=== PATIENT | female | born 1990 | race Caucasian/White ===

== ENCOUNTER 2019-12-26 10:19 | Inpatient (IN) | payer SELFPAY ==
[2019-12-26 10:20] VITALS: BP 110/78; PULSE 80; RESP 18; TEMP 36.6; O2SAT 98; BMI 25.6
--- NOTE | 2019-12-26 10:24 | W.ED.PSYCH ---
Documented by User: VERONIKA Lawson 12/26/19 15:58 HPI - Psych General: Chief Complaint: Psychiatric Symptoms Stated Complaint: SI Time Seen by Provider: 12/26/19 10:24 Source: patient Mode of arrival: ambulatory Limitations: no limitations History of Present Illness: HPI Narrative: Patient is a 29-year-old female who presents to ED today with a complaint of suicidal ideations over the past 2 to 3 weeks. She reports she feels suicidal because of problems with her current roommates. She tells me she has a plan to cut herself with a pocket knife. Patient reports a previous suicide attempt back in April when she cut her neck but it was not deep enough . Patient tells me she originally is from [place] and has been homeless on and off for years. She tells me she chronically has auditory and visual hallucinations reporting a history of schizoaffective disorder. She has been out of her medications for over a week. Patient is currently . She denies drug use or alcohol use. MD complaint: suicidal ideation and feels depressed Onset (ago): week(s) Duration: constant History of same: Yes Associated symptoms: Reports auditory hallucinations, visual hallucinations, depression and suicidal ideation; Deny homicidal ideation Review of Systems Const: Denies: fever(s), chills, body aches, fatigue or malaise Card: Denies: chest pain, palpitations, irregular heart rhythm, edema, swelling of feet/ankles, lightheadedness, syncope, pre-syncope, dyspnea on exertion, orthopnea or leg pain with exertion Resp: Denies: dyspnea, productive cough, hemoptysis or chest congestion GI: Denies: abdominal pain, nausea, vomiting or diarrhea Skin/Breast: Denies: rash Neuro: Denies: headache(s) Psych: Reports: depression, hopelessness, loss of interest, visual hallucinations, auditory hallucinations and suicidal ideation; Denies: anxiety, irritability, paranoia, memory loss or homicidal ideation PFS ED PFSH: Social History Smoking and tobacco status: former smoker Physical Exam Const: COMMON NORMALS: no acute distress, patient oriented x3, alert and well nourished GENERAL APPEARANCE: cooperative ORIENTATION/CONSCIOUSNESS: Yes oriented to person Resp: COMMON NORMALS: normal respiratory effort and clear to auscultation bilaterally AUSCULTATION: clear to auscultation bilaterally Cardio: COMMON NORMALS: regular rate and regular rhythm RATE: regular rate RHYTHM: regular rhythm Neuro: TOBIAS COMA SCALE: document GCS findings Tobias coma scale eye opening: Spontaneous [place] coma scale verbal response: Orientated Tobias coma scale motor response: Obey commands [place] coma scale total score: 15 COMMON NORMALS: patient oriented x3, moves all extremities, no focal motor deficits, no sensory deficits noted and gait normal SENSORIUM/ORIENTATION: Yes alert and Yes oriented to person OTHER: patient appears to have cognitive/developmental delays Psych: COMMON NORMALS: mental status grossly normal, Normal thought process present, cooperative, normal affect, speech normal and activity/motor behavior normal APPEARANCE: Yes grossly normal ATTITUDE: Yes calm ACTIVITY/MOTOR BEHAVIOR: Yes appropriate eye contact and No psychomotor agitation SPEECH: Yes normal speech MOOD & AFFECT: Yes euthymic mood THOUGHT PROCESS: Normal thought process present THOUGHT CONTENT: Yes Normal thought content present ATTENTION/CONCENTRATION: Yes attention grossly intact and Yes concentration grossly intact MEMORY/COGNITION: Yes memory grossly intact and Yes cognition grossly intact INSIGHT: Limited insight present (Psych) JUDGEMENT: Fair judgement present (Psych) OTHER: again patient seems to have intellectual delays Skin: COMMON NORMALS: no rashes or lesions noted GENERAL SKIN EXAM: no rashes or lesions noted MDM - Psych MDM Narrative: Medical decision making narrative: Dr. Jovel evaluated patient and will go ahead and admit to NPU. Asks that I contact OB just to make sure there is nothing from an OB standpoint that we need to do prior or while she is at NPU. Lab Data: Labs: Lab Results 12/26/19 12/26/19 12/26/19 Range/Units 10:52 10:52 10:52 WBC 11.7 H (4.0-10.0) 10^3/ uL RBC 4.46 (4.1-5.3) 10^6/u L Hgb 12.8 (11.5-15.3) g/dL Hct 38.8 (37.0-47.0) % MCV 87.0 (81-99) fL MCH 28.7 (28.0-34.0) pg MCHC 33.0 (30.0-36.0) g/dL RDW 12.0 L (12.1-15.1) % Plt Count 263 (130-400) 10^3/c mm MPV 9.5 (7.4-10.4) fL Neut % (Auto) 81.4 % Lymph % (Auto) 11.7 % Yates % (Auto) 5.5 % Eos % (Auto) 0.7 % Baso % (Auto) 0.3 % Neut # (Auto) 9.5 H (1.8-7.7) 10^3/u L Lymph # (Auto) 1.4 (0.8-4.8) 10^3/u L Yates # (Auto) 0.6 (0.2-0.9) 10^3/u L Eos # (Auto) 0.1 (0.0-0.8) 10^3/u L Baso # (Auto) 0.0 (0.0-0.1) 10^3/u L Nucleated RBC % (a uto) 0 % Nucleated RBCs # 0.0 /100WBC Sodium 138 (136-145) mmol/L Potassium 3.5 (3.5-5.1) mmol/L Chloride 102 (98-107) mmol/L Carbon Dioxide 22 (22-29) mmol/L Anion Gap 17.5 (5-19) BUN 4 L (6-20) mg/dL Creatinine 0.6 (0.5-0.9) mg/dL GFR Calculation 119.0 (90-130) mL/min Glucose 80 (65-115) mg/dL Calculated Osmolal ity 281 L (285-295) mOsm/k g Calcium 9.9 (8.5-10.5) mg/dL Total Bilirubin 0.3 (0.15-1.2) mg/dL AST 18 (0-32) U/L ALT 14 (0-33) U/L Alkaline Phosphata se 110 H (35-105) IU/L Total Protein 7.3 (6.6-8.7) g/dL Albumin 3.7 (3.5-5.2) g/dL Globulin 3.6 (1.3-4.6) g/dL Ser , [place]Qnt 74051.00 mIU/mL Salicylates < 0.3 L (3-10) mg/dL Urine Opiates Scre en (Negative) ng/mL Acetaminophen < 5.0 L (10-30) ug/mL Ur Barbiturates Sc reen (Negative) ng/mL Ur Phencyclidine S crn (Negative) ng/mL Ur Amphetamines Sc reen (Negative) ng/mL U Benzodiazepines Scrn (Negative) ng/mL Urine Cocaine Scre en (Negative) ng/mL U Marijuana (THC) Screen (Negative) ng/mL Ethyl Alcohol < 10 (0-10) mg/dL 12/26/19 Range/Units 13:22 WBC (4.0-10.0) 10^3/ uL RBC (4.1-5.3) 10^6/u L Hgb (11.5-15.3) g/dL Hct (37.0-47.0) % MCV (81-99) fL MCH (28.0-34.0) pg MCHC (30.0-36.0) g/dL RDW (12.1-15.1) % Plt Count (130-400) 10^3/c mm MPV (7.4-10.4) fL Neut % (Auto) % Lymph % (Auto) % Yates % (Auto) % Eos % (Auto) % Baso % (Auto) % Neut # (Auto) (1.8-7.7) 10^3/u L Lymph # (Auto) (0.8-4.8) 10^3/u L Yates # (Auto) (0.2-0.9) 10^3/u L Eos # (Auto) (0.0-0.8) 10^3/u L Baso # (Auto) (0.0-0.1) 10^3/u L Nucleated RBC % (a uto) % Nucleated RBCs # /100WBC Sodium (136-145) mmol/L Potassium (3.5-5.1) mmol/L Chloride (98-107) mmol/L Carbon Dioxide (22-29) mmol/L Anion Gap (5-19) BUN (6-20) mg/dL Creatinine (0.5-0.9) mg/dL GFR Calculation (90-130) mL/min Glucose (65-115) mg/dL Calculated Osmolal ity (285-295) mOsm/k g Calcium (8.5-10.5) mg/dL Total Bilirubin (0.15-1.2) mg/dL AST (0-32) U/L ALT (0-33) U/L Alkaline Phosphata se (35-105) IU/L Total Protein (6.6-8.7) g/dL Albumin (3.5-5.2) g/dL Globulin (1.3-4.6) g/dL Ser , Ry i-Qnt mIU/mL Salicylates (3-10) mg/dL Urine Opiates Scre en Negative (Negative) ng/mL Acetaminophen (10-30) ug/mL Ur Barbiturates Sc reen Negative (Negative) ng/mL Ur Phencyclidine S crn Negative (Negative) ng/mL Ur Amphetamines Sc reen Negative (Negative) ng/mL U Benzodiazepines Scrn Negative (Negative) ng/mL Urine Cocaine Scre en Negative (Negative) ng/mL U Marijuana (THC) Screen Negative (Negative) ng/mL Ethyl Alcohol (0-10) mg/dL Imaging Data^: OB ultrasound: Radiologist's impression: [place] [address] Ultrasound Report Signed Patient: KWABENA BERMAN Unit #: [id number] : 1990 Age/Sex: 29 / F ADM Date: 12/26/19 Loc: ER Room/Bed: Attending Dr: Ordering Provider/Ordering MD: Ignacia Beasley Date of Service: 12/26/19 Procedure(s): US OB limited [id number] Accession Number(s): [id number] Report Number: [id number] WS: [id number] LIMITED OBSTETRICAL ULTRASOUND HISTORY: ; unknown how far along COMPARISON: None available. Presentation: Breech. Cervix: Closed and normal length. Placenta: Anterior with no previa or abruption. Grade: 0 HEART: FHR of 164 BPM. measurements: BPD = 3.1 cm = 15w6d HC = 11.6 cm = 15w5d AC = 9.9 cm = 15w6d FL = 2.0 cm = 16w0d EFW: 139 g; %. AGA by ultrasound: 15w6d EMMANUELLE by ultrasound: 06/12/2020 US/US OB limited [id number] IMPRESSION: 1. Single intrauterine gestation of 15 weeks 6 days with an EDC of 06/12/2020. 2. No abnormality identified. Dictated By: Cindy Watson DO Signed By: Cindy Watson DO Signed Date/Time: 12/26/19 1133 DD/ 1132 Discharge Plan Discharge Patient Disposition: Admitted As Inpatient Clinical Impression: Suicidal ideation, Second trimester Condition: Stable Coding Level of Care Code ED [employer] Flat[employer] Truck Driver for Samuel Fwd Exam Detailed Documented by User: Liza Pinto MD 12/26/19 16:09 HPI - Psych General: Chief Complaint: Psychiatric Symptoms Stated Complaint: SI Time Seen by Provider: 12/26/19 10:24 PFSH ED PFSH: Social History Smoking and tobacco status: former smoker MDM - Psych Lab Data: Labs: Lab Results 12/26/19 12/26/19 12/26/19 Range/Units 10:52 10:52 10:52 WBC 11.7 H (4.0-10.0) 10^3/ uL RBC 4.46 (4.1-5.3) 10^6/u L Hgb 12.8 (11.5-15.3) g/dL Hct 38.8 (37.0-47.0) % MCV 87.0 (81-99) fL MCH 28.7 (28.0-34.0) pg MCHC 33.0 (30.0-36.0) g/dL RDW 12.0 L (12.1-15.1) % Plt Count 263 (130-400) 10^3/c mm MPV 9.5 (7.4-10.4) fL Neut % (Auto) 81.4 % Lymph % (Auto) 11.7 % Yates % (Auto) 5.5 % Eos % (Auto) 0.7 % Baso % (Auto) 0.3 % Neut # (Auto) 9.5 H (1.8-7.7) 10^3/u L Lymph # (Auto) 1.4 (0.8-4.8) 10^3/u L Yates # (Auto) 0.6 (0.2-0.9) 10^3/u L Eos # (Auto) 0.1 (0.0-0.8) 10^3/u L Baso # (Auto) 0.0 (0.0-0.1) 10^3/u L Nucleated RBC % (a uto) 0 % Nucleated RBCs # 0.0 /100WBC Sodium 138 (136-145) mmol/L Potassium 3.5 (3.5-5.1) mmol/L Chloride 102 (98-107) mmol/L Carbon Dioxide 22 (22-29) mmol/L Anion Gap 17.5 (5-19) BUN 4 L (6-20) mg/dL Creatinine 0.6 (0.5-0.9) mg/dL GFR Calculation 119.0 (90-130) mL/min Glucose 80 (65-115) mg/dL Calculated Osmolal ity 281 L (285-295) mOsm/k g Calcium 9.9 (8.5-10.5) mg/dL Total Bilirubin 0.3 (0.15-1.2) mg/dL AST 18 (0-32) U/L ALT 14 (0-33) U/L Alkaline Phosphata se 110 H (35-105) IU/L Total Protein 7.3 (6.6-8.7) g/dL Albumin 3.7 (3.5-5.2) g/dL Globulin 3.6 (1.3-4.6) g/dL Ser , [place]Qnt 03980.00 mIU/mL Salicylates < 0.3 L (3-10) mg/dL Urine Opiates Scre en (Negative) ng/mL Acetaminophen < 5.0 L (10-30) ug/mL Ur Barbiturates Sc reen (Negative) ng/mL Ur Phencyclidine S crn (Negative) ng/mL Ur Amphetamines Sc reen (Negative) ng/mL U Benzodiazepines Scrn (Negative) ng/mL Urine Cocaine Scre en (Negative) ng/mL U Marijuana (THC) Screen (Negative) ng/mL Ethyl Alcohol < 10 (0-10) mg/dL 12/26/19 Range/Units 13:22 WBC (4.0-10.0) 10^3/ uL RBC (4.1-5.3) 10^6/u L Hgb (11.5-15.3) g/dL Hct (37.0-47.0) % MCV (81-99) fL MCH (28.0-34.0) pg MCHC (30.0-36.0) g/dL RDW (12.1-15.1) % Plt Count (130-400) 10^3/c mm MPV (7.4-10.4) fL Neut % (Auto) % Lymph % (Auto) % Yates % (Auto) % Eos % (Auto) % Baso % (Auto) % Neut # (Auto) (1.8-7.7) 10^3/u L Lymph # (Auto) (0.8-4.8) 10^3/u L Yates # (Auto) (0.2-0.9) 10^3/u L Eos # (Auto) (0.0-0.8) 10^3/u L Baso # (Auto) (0.0-0.1) 10^3/u L Nucleated RBC % (a uto) % Nucleated RBCs # /100WBC Sodium (136-145) mmol/L Potassium (3.5-5.1) mmol/L Chloride (98-107) mmol/L Carbon Dioxide (22-29) mmol/L Anion Gap (5-19) BUN (6-20) mg/dL Creatinine (0.5-0.9) mg/dL GFR Calculation (90-130) mL/min Glucose (65-115) mg/dL Calculated Osmolal ity (285-295) mOsm/k g Calcium (8.5-10.5) mg/dL Total Bilirubin (0.15-1.2) mg/dL AST (0-32) U/L ALT (0-33) U/L Alkaline Phosphata se (35-105) IU/L Total Protein (6.6-8.7) g/dL Albumin (3.5-5.2) g/dL Globulin (1.3-4.6) g/dL Ser , Ry i-Qnt mIU/mL Salicylates (3-10) mg/dL Urine Opiates Scre en Negative (Negative) ng/mL Acetaminophen (10-30) ug/mL Ur Barbiturates Sc reen Negative (Negative) ng/mL Ur Phencyclidine S crn Negative (Negative) ng/mL Ur Amphetamines Sc reen Negative (Negative) ng/mL U Benzodiazepines Scrn Negative (Negative) ng/mL Urine Cocaine Scre en Negative (Negative) ng/mL U Marijuana (THC) Screen Negative (Negative) ng/mL Ethyl Alcohol (0-10) mg/dL Discharge Plan Discharge Patient Disposition: Admitted As Inpatient Clinical Impression: Suicidal ideation, Second trimester Condition: Stable Coding Level of Care Code ED [employer] Flatbed Truck Driver for Samuel Fwmayda Exam Detailed
--- NOTE | 2019-12-26 11:00 | US_ITS ---
WS: [id number] LIMITED OBSTETRICAL ULTRASOUND HISTORY: ; unknown how far along COMPARISON: None available. Presentation: Breech. Cervix: Closed and normal length. Placenta: Anterior with no previa or abruption. Grade: 0 HEART: FHR of 164 BPM. measurements: BPD = 3.1 cm = 15w6d HC = 11.6 cm = 15w5d AC = 9.9 cm = 15w6d FL = 2.0 cm = 16w0d EFW: 139 g; %. AGA by ultrasound: 15w6d EMMANUELLE by ultrasound: 06/12/2020 US/US OB limited [id number] IMPRESSION: 1. Single intrauterine gestation of 15 weeks 6 days with an EDC of 06/12/2020. 2. No abnormality identified.
[2019-12-26 11:01] LABS: Basophils % 0.3 %; Eosinophils # 0.1 10^3/uL (0.0-0.8); Eosinophils % 0.7 %; Hematocrit 38.8 % (37.0-47.0); Hemoglobin 12.8 g/dL (11.5-15.3); Lymphocytes # 1.4 10^3/uL (0.8-4.8); Lymphocytes % 11.7 %; Mean Corpuscular Hemoglobin 28.7 pg (28.0-34.0); Mean Platelet Volume 9.5 fL (7.4-10.4); Monocytes # 0.6 10^3/uL (0.2-0.9); Monocytes % 5.5 %; Neutrophils # 9.5 10^3/uL (1.8-7.7); Neutrophils % 81.4 %; Nucleated Red Blood Cells % 0 %; Platelet Count 263 10^3/cmm (130-400); Red Blood Count 4.46 10^6/uL (4.1-5.3); White Blood Count 11.7 10^3/uL (4.0-10.0)
[2019-12-26 11:16] LABS: Alanine Aminotransferase 14 U/L (0-33); Albumin Level 3.7 g/dL (3.5-5.2); Alkaline Phosphatase 110 IU/L (35-105); Anion Gap 17.5 (5-19); Aspartate Amino Transferase 18 U/L (0-32); Blood Urea Nitrogen 4 mg/dL (6-20); Calcium 9.9 mg/dL (8.5-10.5); Carbon Dioxide 22 mmol/L (22-29); Chloride 102 mmol/L (98-107); Creatinine Clr Calc Pharmacy 122.2201; Globulin 3.6 g/dL (1.3-4.6); Glucose 80 mg/dL (65-115); Osmolality Calculated 281 mOsm/kg (285-295); Potassium 3.5 mmol/L (3.5-5.1); Sodium 138 mmol/L (136-145); Total Bilirubin 0.3 mg/dL (0.15-1.2); Total Protein 7.3 g/dL (6.6-8.7)
[2019-12-26 11:26] LABS: Acetaminophen < 5.0 ug/mL (10-30); Alcohol Level < 10 mg/dL (0-10); Salicylate < 0.3 mg/dL (3-10)
--- NOTE | 2019-12-26 11:32 | PC.NURSE ---
US COMPLETED PATIENT TOLERATED WELL
[2019-12-26 14:41] LABS: Amphetamines Screen Urine Negative (Negative); Barbiturates Screen Urine Negative (Negative); Benzodiazepines Screen Urine Negative (Negative); Cocaine Screen Urine Negative (Negative); Opiate Screen Urine Negative (Negative); PCP Screen Urine Negative (Negative); THC Screen Urine Negative (Negative)
--- NOTE | 2019-12-26 14:44 | PC.NURSE ---
SEE SITTER NOTES FOR 1 ON 1 DOCUMENTATION
[2019-12-26 18:26] VITALS: BP 108/80; PULSE 88; RESP 16; O2SAT 99
[2019-12-26 18:37] VITALS: BP 110/70; PULSE 91; RESP 20; TEMP 36.7; O2SAT 97
[2019-12-26 19:38] VITALS: BP 106/73; PULSE 83; RESP 18; TEMP 37.1; O2SAT 98
[2019-12-26] MEDS: trazodone 50 mg Tablet PO (20:45)
[2019-12-26 21:28] VITALS: BP 106/73; PULSE 83; RESP 18; TEMP 37.1; O2SAT 98
[2019-12-27 06:00] VITALS: BP 106/63; PULSE 85; RESP 21; TEMP 36.7; O2SAT 97
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
[2019-12-27 13:55] VITALS: BP 93/69; PULSE 118; RESP 18; TEMP 37; O2SAT 97
--- NOTE | 2019-12-27 17:09 | PC.NURSE ---
OB HERE TO DO FHT. RANGE IS IN 150'S.
[2019-12-27] MEDS: trazodone 50 mg Tablet PO (20:08)
[2019-12-27 21:16] VITALS: BP 100/66; PULSE 100; RESP 23; TEMP 36.5; O2SAT 98
[2019-12-28 06:00] VITALS: BP 108/71; PULSE 81; RESP 20; TEMP 36.7; O2SAT 98
[2019-12-28] MEDS: prenatal vitamin Capsule 1 CAP PO (09:13)
[2019-12-28 14:00] VITALS: BP 118/82; PULSE 83; RESP 19; TEMP 36.6
--- NOTE | 2019-12-28 14:12 | PC.NURSE ---
Wharf Worker performed doppler and FHT heard at 160bpm
--- NOTE | 2019-12-28 14:39 | PM.NPN ---
Subjective NPU Subjective: Interval history: Opal presented today reporting that she was able to talk to the people at her house with recommendations from 1 of her unit mates and it was very effective. They apologize for making her feel bad and challenged her to let them know if there were issues like that in the future. Her previously discussed plan of returning to [place] on Monday after her disability check arrive has been changed to a plan to return back to this home. She is excited about being connected with [facility] as well as OB resources. Mental Status Exam MSE Comments: This is an overweight mixed female with slightly abnormal face ease with adequate dress grooming and eye contact. No abnormal movements. Cooperative with exam in no acute stress. Speech was normal rate and volume. Mood described as better affect congruent. Thought process organized. Thought content: Patient denied any suicidal or homicidal ideations, there were no delusions reported or noted, she denied any auditory visual hallucinations. Attention and concentration appeared intact and memory appeared reliable but none were formally tested. She is alert and oriented x3. Insight and judgment were fair. Intellectual ability impaired. Vitals/I&O/Wt Last Vital Signs Temp 98.6 F 12/28/19 22:00 Pulse 104 H 12/28/19 22:00 Resp 19 H 12/28/19 22:00 BP 101/67 12/28/19 22:00 Pulse Ox 97 12/28/19 22:00 Weight last 48 hrs Weight 67.358 kg Data NPU : 12/26/19 10:52 12/26/19 10:52 A&P Assessment and plan (1) Suicidal ideation: Status: Acute (2) Second trimester : Status: Acute (3) Depressive disorder: Status: Acute (4) Impulse control disorder, unspecified: Status: Acute (5) Intellectual disability: Status: Acute Additional A&P Information She is a 29-year-old mixed female who presents 15 to 16 weeks with recent conflicts at home with a history of intellectual disability, impulse control issues depression and anxiety looking for connection or resources. 1. Continue current medication. 2. Encourage individual, group and milieu therapy. 3. Continue to 15-minute checks for safety. 4. We will work with treatment team on Monday for connection to mental health and OB resources as well as insurance providers. Involuntary Hold Information 96 Hour Hold: 96 Hour Involuntary Admission: No Attestations NPU Medical Necessity Statement*: Inpatient hospitalization is medically necessary and the clinically appropriate intervention at this time. We will monitor medications and initiate and make changes as indicated with collaboration with OB. Likely length of stay 2 to 4 days. Coding Level of Care Code Acute Marketing Communications Coordinator for Chg Fwd Diagnoses Suicidal ideation R45.851 Second trimester Z34.92 Depressive disorder F32.9 Impulse control disorder, unspecified F63.9 Intellectual disability F79
[2019-12-28 22:00] VITALS: BP 101/67; PULSE 104; RESP 19; TEMP 37; O2SAT 97
[2019-12-28] MEDS: hyDROXYzine 25 mg Capsule 50 MG PO (22:03)
[2019-12-29 06:00] VITALS: BP 100/66; PULSE 84; RESP 18; TEMP 36.7; O2SAT 98
[2019-12-29] MEDS: prenatal vitamin Capsule 1 CAP PO (08:55)
[2019-12-29 14:00] VITALS: BP 107/72; PULSE 82; RESP 19; TEMP 37.1
--- NOTE | 2019-12-29 16:42 | P.PN_ITS ---
Subjective NPU Subjective: Interval history: Opal presents today continuing to report improvement in how she was feeling when she presented to the emergency room and haider excited about returning tong the residents where she was before she was admitted. She was really focused on making sure she was connected to resources to continue appropriate mental health and obstetric follow-up. Mental Status Exam MSE Comments: This is an overweight mixed female with slightly abnormal facies with adequate dress grooming and eye contact. No abnormal movements. Cooperative with exam in no acute stress. Speech was normal rate and volume. Mood described as goodaffect congruent. Thought process organized. Thought content: Patient denied any suicidal or homicidal ideations, there were no delusions reported or noted, she denied any auditory visual hallucinations. Attention and concentration appeared intact and memory appeared reliable but none were formally tested. She is alert and oriented x3. Insight and judgment were fair. Intellectual ability impaired. Vitals/I&O/Wt Last Vital Signs Temp 98.7 F 12/29/19 19:57 Pulse 82 12/29/19 19:57 Resp 18 12/29/19 19:57 BP 100/68 12/29/19 19:57 Pulse Ox 98 12/29/19 19:57 12/29/19 14:59 Intake Total 120 / 120 Balance 120 / 120 Weight last 48 hrs Weight 67.358 kg Data NPU : 12/26/19 10:52 12/26/19 10:52 A&P Additional A&P Information (1) Suicidal ideation: (2) Second trimester : (3) Depressive disorder: (4) Impulse control disorder, unspecified: (5) Intellectual disability: She is a 29-year-old mixed female who presents 15 to 16 weeks with recent conflicts at home with a history of intellectual disability, impulse control issues depression and anxiety looking for connection or resources. 1. Continue current medication. 2. Encourage individual, group and milieu therapy. 3. Continue to 15-minute checks for safety. 4. We will work with treatment team on Monday for connection to mental health and OB resources as well as insurance providers. Involuntary Hold Information 96 Hour Hold: 96 Hour Involuntary Admission: No Attestations NPU Medical Necessity Statement*: Inpatient hospitalization is medically necessary and the clinically appropriate intervention at this time. We will monitor medications and initiate and make changes as indicated with collaboration with OB. Likely length of stay 1-3 days. Coding Level of Care Code Acute Workforce Management Analyst for Samuel Altamirano
[2019-12-29 19:57] VITALS: BP 100/68; PULSE 82; RESP 18; TEMP 37.1; O2SAT 98
[2019-12-29] MEDS: hyDROXYzine 25 mg Capsule 50 MG PO (20:56)
[2019-12-30 06:00] VITALS: BP 100/67; PULSE 81; RESP 15; TEMP 36.8; O2SAT 97
[2019-12-30] MEDS: prenatal vitamin Capsule 1 CAP PO (08:27)
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
[2019-12-30 11:29] VITALS: BP 100/67; PULSE 81; RESP 15; TEMP 36.8; O2SAT 97
== END 2019-12-30 12:39 | disposition home or self-care (01) | DRG 832 ==
LOC: ER 15:58 → NP 18:04
PROVIDERS: Physician Assistant; Admitting Provider Psychiatry & Neurology Psychiatry; Visit Provider Psychiatry & Neurology Psychiatry
DX: O99.342 Other mental disorders complicating pregnancy, second trimester (principal); R45.851 Suicidal ideations; F32.9 Major depressive disorder, single episode, unspecified; F79 Unspecified intellectual disabilities; Z3A.15 15 weeks gestation of pregnancy; O26.892 Other specified pregnancy related conditions, second trimester; Z81.8 Family history of other mental and behavioral disorders; Z87.891 Personal history of nicotine dependence; F63.9 Impulse disorder, unspecified
CPT/HCPCS: 12345; 36415; 76815; 80053; 80306; 80307; 84702; 85025; 99284

== ENCOUNTER 2020-01-09 17:39 | Inpatient (IN) | payer SELFPAY ==
[2020-01-09 17:54] VITALS: BP 112/73; PULSE 92; RESP 16; TEMP 36.8; O2SAT 98; BMI 32.0
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
[2020-01-09 18:26] LABS: Basophils % 0.2 %; Eosinophils # 0.1 10^3/uL (0.0-0.8); Eosinophils % 0.5 %; Hematocrit 36.6 % (37.0-47.0); Hemoglobin 11.9 g/dL (11.5-15.3); Lymphocytes # 1.8 10^3/uL (0.8-4.8); Lymphocytes % 13.8 %; Mean Corpuscular HGB Conc 32.5 g/dL (30.0-36.0); Mean Corpuscular Hemoglobin 29.2 pg (28.0-34.0); Mean Corpuscular Volume 89.9 fL (81-99); Mean Platelet Volume 9.8 fL (7.4-10.4); Monocytes # 0.7 10^3/uL (0.2-0.9); Monocytes % 5.1 %; Neutrophils # 10.6 10^3/uL (1.8-7.7); Nucleated Red Blood Cells % 0 %; Platelet Count 272 10^3/cmm (130-400); Red Blood Count 4.07 10^6/uL (4.1-5.3); Red Cell Distribution Width 12.5 % (12.1-15.1); White Blood Count 13.3 10^3/uL (4.0-10.0)
[2020-01-09 18:47] LABS: Alanine Aminotransferase 18 U/L (0-33); Albumin Level 3.9 g/dL (3.5-5.2); Alkaline Phosphatase 88 IU/L (35-105); Anion Gap 16.2 (5-19); Aspartate Amino Transferase 18 U/L (0-32); Blood Urea Nitrogen 7 mg/dL (6-20); Calcium 9.7 mg/dL (8.5-10.5); Carbon Dioxide 21 mmol/L (22-29); Chloride 105 mmol/L (98-107); Globulin 2.9 g/dL (1.3-4.6); Glomerular Filtration Rate 146.9 mL/min (90-130); Glucose 106 mg/dL (65-115); Osmolality Calculated 284 mOsm/kg (285-295); Potassium 3.2 mmol/L (3.5-5.1); Sodium 139 mmol/L (136-145); Total Bilirubin 0.2 mg/dL (0.15-1.2); Total Protein 6.8 g/dL (6.6-8.7)
[2020-01-09 18:50] LABS: HCG, Serum Qual Positive (Negative)
[2020-01-09 18:52] LABS: Acetaminophen < 5.0 ug/mL (10-30); Alcohol Level < 10 mg/dL (0-10); Salicylate < 0.3 mg/dL (3-10)
[2020-01-09 19:25] VITALS: BP 104/67; PULSE 77; RESP 16; O2SAT 99
[2020-01-09 19:56] VITALS: BP 101/68; PULSE 78; RESP 20; TEMP 36.6; O2SAT 98
[2020-01-09 19:59] LABS: Bilirubin Urine Neg (NEGATIVE); Blood Urine Neg (Negative); Glucose Urine UA Norm (Normal); Ketones Urine Negative (Negative); Nitrate Urine Negative (Negative); Protein Urine Neg (Negative); Specific Gravity, Urine 1.015 (1.005-1.030); Urine Appearance Clear (CLEAR); Urine Color Yellow (Yellow); pH Urine 7 (5-7)
[2020-01-09 20:02] LABS: Leukocyte Esterase Urine Negative (Negative); Sulfosalicylic Acid Urine Negative (Negative); Urobilinogen Urine Neg (Negative)
[2020-01-09 20:11] LABS: Amorphous Sediment Urine 2+; Bacteria Urine 1+; Squamous Epithelial Cell Urine 15-25 (0-5)
[2020-01-09 20:12] LABS: Add Urine Culture? No
[2020-01-09 21:08] LABS: Amphetamines Screen Urine Negative (Negative); Barbiturates Screen Urine Negative (Negative); Benzodiazepines Screen Urine Negative (Negative); Cocaine Screen Urine Negative (Negative); Opiate Screen Urine Negative (Negative); PCP Screen Urine Negative (Negative); THC Screen Urine Negative (Negative)
[2020-01-09 22:00] VITALS: BP 101/68; PULSE 78; RESP 20; TEMP 36.6; O2SAT 98
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
[2020-01-10 06:00] VITALS: BP 100/60; PULSE 80; RESP 19; TEMP 36.8; O2SAT 96
--- NOTE | 2020-01-10 12:11 | PC.RESP ---
Smoking Cessation information and a schedule of classes to patient.
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
[2020-01-10 14:00] VITALS: BP 109/76; PULSE 92; RESP 18; TEMP 36.6; O2SAT 98
--- NOTE | 2020-01-10 14:44 | PC.NURSE ---
heart tones dopplered at this time. Noted to be in 150s.
[2020-01-10] MEDS: acetaminophen 325 mg Tablet 650 MG PO (19:21)
[2020-01-10] MEDS: haloperidol 5 mg Tablet PO (19:23)
[2020-01-10 21:33] VITALS: BP 105/74; PULSE 78; RESP 20; TEMP 36.5; O2SAT 100
[2020-01-11 06:00] VITALS: BP 104/70; PULSE 89; RESP 18; TEMP 36.8; O2SAT 98
--- NOTE | 2020-01-11 09:36 | PM.NPN ---
Subjective NPU Subjective: Interval history: Patient requests initiation of vitamin. Otherwise she has no complaints. She states her intent to return home to [place] once social work is able to assist her in that area. Otherwise no complaints. Mental Status Exam MSE Comments: Mental Status Exam: The patient is a young woman appearing approximately her stated age. She has bright blue haircut in a stylish manner. She is generally believed to be a reliable informant to questions that she does answer as information is internally consistent and consistent with that reflected back on her last evaluation 12 days ago. Appearance: hygiene is fair; no gross neurological deficits., gait is unremarkable; AIMS=0 Speech: Speech is of normal rate and rhythm and easily understood. Thought processes: Thought processes are concrete. Judgment is not adequate for safety. Associations: intact Psychotic processes: There is no indication of guarding or paranoia. There is no attention to the internal stimuli. Auditory and visual hallucinations are denied. Judgment: Insight is . Problem solving skills are poor but adequate for safety. Orientation: The patient is oriented to person, place time and situation. Memory: no deficits noted in immediate, intermediate, or remote spheres. Attention: The patient is alert and interpersonally engaged. Language: Verbalizations are coherent. Fund of knowledge: Fund of knowledge is quite poor. Affect/Mood: Affect is consistent with a euthymic mood. She denies suicidal ideation but no intent or plan. Affective range appropriate. Psychosis: perception unimpaired except through cognitive distortion; reality testing intact. Cognition: Patient Appearance: Appropriate Level of Consciousness: Awake, Alert, Appropriate and Follows Commands Patient Cognition Impaired: No Ability to Follow Directions: Good Patient Orientation (long list): Person, Place and Time Comprehension Ability: No Impairment Hallucination Type: None Delusion Description: Not Present Thought Process: Appropriate Affect: Affect Description: Calm Behavior: Patient Behavior: Appropriate Speech Pattern: Clear Vitals/I&O/Wt Last Vital Signs Temp 98.2 F 01/11/20 06:00 Pulse 89 01/11/20 06:00 Resp 18 01/11/20 06:00 BP 104/70 01/11/20 06:00 Pulse Ox 98 01/11/20 06:00 Weight last 48 hrs Weight 79.379 kg Data NPU : 01/09/20 18:06 01/09/20 18:06 A&P Assessment and plan (1) Intellectual disability: Status: Acute (2) Depressive disorder: Status: Acute (3) Suicidal ideation: Status: Acute (4) Second trimester : Status: Acute (5) Adjustment disorder with mixed disturbance of emotions and conduct: Status: Acute Additional A&P Information Diagnoses: Adjustment disorder with disturbance of mood and conduct By history:1) Intellectual disability: Status: Acute (2) Impulse control disorder, unspecified: Status: Acute (3) Depressive disorder: Status: Acute (4) Suicidal ideation: Status: Acute (5) Second trimester : Status: Acute Treatment plan: Due to the psychiatric conditions and treatment listed in the Assessment and Plan - the patient requires continued hospitalization. Will provide a safe and therapeutic environment for patient.. Will continue inpatient treatment to allow for medication adjustment and monitoring. Will continue q15 min safety checks. Hospital day #1: The plan at this time is to go ahead and start medication for depression. We discussed the problems of providing mental health medications in the presence of a 17-week . However it was agreed that not treating these problems would render the infant at greater risk of more serious injury. We will start Celexa 10 mg daily and provide prazosin 1 mg at bedtime for insomnia. She has Haldol available on a as needed basis for her report of auditory hallucinations. Hospital day #2: She denies auditory hallucinations at this time. Initiate vitamin. Day #2 on Celexa 10 mg daily and prazosin 1 mg at bedtime. Social work assessment is pending. Monitor patient's mood, sleep, appetite, and behavior closely. Encourage patient to participate in individual and group therapeutic sessions on the luo. Estimated length of stay 5 days The expected benefits and potential side effects of patient's psychiatric medications were discussed with the patient. The patient understands and consents to treatment.CRITERIA FOR DISCHARGE: stable on medications and no longer an im Involuntary Hold Information 96 Hour Hold: 96 Hour Involuntary Admission: No Attestations NPU Medical Necessity Statement*: Patient will remain in the hospital another 2-4 nights for assessment of medication efficacy and tolerability. Coding Level of Care Code Acute Heat And Frost Insulator Helper for Samuel Fwd Diagnoses Intellectual disability F79 Depressive disorder F32.9 Suicidal ideation R45.851 Second trimester Z34.92 Adjustment disorder with mixed disturbance of emotions and conduct F43.25
[2020-01-11] MEDS: prenatal vitamin Capsule 1 CAP PO (10:05)
[2020-01-11 14:00] VITALS: BP 122/85; RESP 18; TEMP 37.1; O2SAT 98
[2020-01-11 22:00] VITALS: BP 97/65; PULSE 89; RESP 20; TEMP 37; O2SAT 97
[2020-01-11] MEDS: hyDROXYzine 25 mg Capsule 50 MG PO (22:53)
[2020-01-11] MEDS: trazodone 50 mg Tablet PO (22:53)
--- NOTE | 2020-01-11 23:47 | PC.NURSE ---
Vistaril 50mg for anxiety; trazodone 50 mg given for sleep
[2020-01-12 06:00] VITALS: BP 95/59; PULSE 70; RESP 17; TEMP 37.1; O2SAT 98
[2020-01-12] MEDS: prenatal vitamin Capsule 1 CAP PO (08:31)
[2020-01-12 14:00] VITALS: BP 96/61; PULSE 100; RESP 18; TEMP 36.7; O2SAT 97
[2020-01-12] MEDS: acetaminophen 325 mg Tablet 650 MG PO (16:02)
--- NOTE | 2020-01-12 18:59 | P.DS_ITS ---
Diagnoses at Discharge Discharge Diagnosis (1) Intellectual disability: Status: Acute Problem details: Patient has the resources and support from her brother, who is paying for her [employer] tickets to [place], [place]. She has the ability to make the trip cognitively. (2) Depressive disorder: Status: Acute Problem details: No depressive symptomatology. (3) Suicidal ideation: Status: Acute Problem details: Resolved. The patient indicates that she emphatically is not suicidal and was not when she came in here but needed a place to stay. (4) Second trimester : Status: Acute Problem details: The patient is doing well 18 weeks into her . (5) Adjustment disorder with mixed disturbance of emotions and conduct: Status: Acute Problem details: The crisis has passed into history. Reason for Visit Reason for Visit: SI Hospital Course Hospital Course Patient very rapidly resolved her crisis situation. She was never aggressive or acting out on the unit. She today is free of suicidal or homicidal ideation, plan or intent and wants to go home. She is a voluntary patient. I see no factual or behavioral wherewithal by which this hospital could involuntarily detain this patient Involuntary Hold Information 96 Hour Hold: 96 Hour Involuntary Admission: No Mental Status Exam MSE Comments: This is a 29-year-old mixed ethnicity female who presents at her stated age. She is not disheveled and is well-kept. Mood is cheerful and affect is appropriate to her mood. Thought processes are integrated and free of any racing, blocking or looseness of association. Speech is of normal rate and volume, without dysarthria, aprosody or pressure. Cognitive function appear to be sufficient to ride the train. She details each line that she will take, at which stations she will transfer. She knows what she is doing with respect to the rails. While cognitive functions are said to be diminished, they are certainly not so diminished as to impede her travel. She denies suicidal or homicidal ideation, plan or intent. Discharge Data Vitals: Last Vital Signs Temp 98.1 F 01/12/20 14:00 Pulse 100 01/12/20 14:00 Resp 18 01/12/20 14:00 BP 96/61 01/12/20 14:00 Pulse Ox 97 01/12/20 14:00 Discharge Plan Discharge Patient Disposition: Home, Self-Care Condition: Stable Prescriptions: No Action PNV cmb#95-ferrous fumarate-FA [] 28 mg iron- 800 mcg Tablet 1 tab PO DAILY 30 Days Qty: 30 RF: 1 Discharge Attestations NPU Time Spent in Discharge Care*: greater than 30 min Specific Discharge Activities: Specific discharge activities: educating patient, discussing with pcp/other providers, discussing with protective services case worker/social workers/dc planners, documenting/other paperwork and evaluating patient/reviewing data Time Spent in Smoking Cessation: Time spent discussing smoking cessation with patient: 3 to 10 minutes Details of Smoking Cessation Education: impact of smoking. Octogenarian study. Status at Discharge: Cognitive status at discharge: cognitively intact , Behavioral status at discharge: cooperative , Functional status at discharge: independent ambulation Overall status at discharge: patient is back to baseline Coding Level of Care Code Acute Business Systems Analyst for g Fwd Diagnoses Intellectual disability F79 Depressive disorder F32.9 Suicidal ideation R45.851 Second trimester Z34.92 Adjustment disorder with mixed disturbance of emotions and conduct F43.25
[2020-01-12] MEDS: trazodone 50 mg Tablet PO (20:42)
[2020-01-12 22:00] VITALS: BP 107/74; PULSE 78; RESP 18; TEMP 36.9; O2SAT 98
[2020-01-13 06:00] VITALS: BP 98/62; PULSE 81; RESP 16; TEMP 36.8; O2SAT 97
[2020-01-13 08:10] VITALS: BP 98/62; PULSE 81; RESP 16; TEMP 36.8; O2SAT 97
[2020-01-13] MEDS: prenatal vitamin Capsule 1 CAP PO (08:26)
== END 2020-01-13 14:05 | disposition home or self-care (01) | DRG 832 ==
LOC: ER 18:21 → NP 19:19
PROVIDERS: Admitting Provider Psychiatry & Neurology Psychiatry; Emergency Provider Physician Assistant; Visit Provider Psychiatry & Neurology Psychiatry
DX: O99.342 Other mental disorders complicating pregnancy, second trimester (principal); R45.851 Suicidal ideations; F43.25 Adjustment disorder with mixed disturbance of emotions and conduct; Z3A.18 18 weeks gestation of pregnancy; F32.9 Major depressive disorder, single episode, unspecified; F79 Unspecified intellectual disabilities; R45.850 Homicidal ideations; O99.332 Smoking (tobacco) complicating pregnancy, second trimester; F17.210 Nicotine dependence, cigarettes, uncomplicated
CPT/HCPCS: 12345; 80053; 80306; 80307; 81001; 84703; 85025; 99284